=== PATIENT | female | born 1940 | race Caucasian/White ===

== ENCOUNTER 2022-03-30 09:07 | Emergency (ER) | payer MEDICARE, SELFPAY ==
[2022-03-30 09:19] VITALS: BP 143/62; PULSE 60; RESP 16; TEMP 36.6; O2SAT 99
--- NOTE | 2022-03-30 09:56 | ED.URI ---
HPI - URI/Sore Throat General Chief Complaint: Upper Respiratory Infection Stated Complaint: cough Time Seen by Provider: 03/30/22 09:56 Source: patient and RN notes reviewed Mode of arrival: ambulatory Limitations: no limitations History of Present Illness HPI Narrative: 81 y/o female presented for test for flu and RSV. States last week she was sick with cough, and the operations and maintenance technican cover provider gave zpack and steroids which she has completed. She states pulm wanted testing for flu and RSV and she will be going to [place] for a CXR this week, then f/u with pulm. Reports she continues to cough but no longer coughing up green/yellow sputum. Denies hemoptysis, sob, wheezing, n/v/d/f/c. elicited complaint: cough Related Data Home Medications Medication Instructions Recorded Confirmed amlodipine 10 mg tablet 10 mg PO DAILY 03/30/22 03/30/22 doxazosin 4 mg tablet 4 mg PO DAILY 03/30/22 03/30/22 furosemide 40 mg tablet 40 mg PO DAILY 03/30/22 03/30/22 losartan 100 mg tablet 100 mg PO DAILY 03/30/22 03/30/22 pantoprazole 40 mg tablet,delayed 40 mg PO DAILY 03/30/22 03/30/22 release potassium chloride 10 mEq 20 meq PO BID 03/30/22 03/30/22 tablet,extended release rosuvastatin 40 mg tablet 40 mg PO DAILY 03/30/22 03/30/22 spironolactone 25 mg tablet 12.5 mg PO DAILY 03/30/22 03/30/22 Allergies Allergy/AdvReac Type Severity Reaction Status Date / Time levofloxacin Allergy Intermediate Other Verified 03/30/22 10:00 Penicillins Allergy Intermediate Rash Verified 03/30/22 10:00 Sulfa (Sulfonamide Allergy Intermediate Blister Verified 03/30/22 10:00 Antibiotics) Review of Systems Review of Systems: per HPI Exam Narrative: GENERAL: well-appearing, nontoxic EYES: PERRLA, conjunctivae clear ENT: Mucous membranes moist. TMs pearly rosa with dull light reflex bilaterally; no tragal tenderness. CHEST: Right lower lobe faint wheezing, No respiratory distress, speaks in full sentences. HEART: Regular rate and rhythm. No murmur heard. SKIN: Warm, dry, no rash. NEURO: Alert and oriented x3. PSYCH: Normal mood and affect Course Course Emergency Course: Patient is aware of diagnosis, understands and agrees to treatment plan. Anticipatory guidance given. Patient agrees to follow-up as directed and is aware of reasons to seek care at the emergency department. Portions of this record may have been created with voice recognition software Level of Care: Express Care Visit Vital Signs Vital signs: Vital Signs Temperature 97.9 F 03/30/22 09:19 Pulse Rate 60 03/30/22 09:19 Respiratory Rate 16 03/30/22 09:19 Blood Pressure 143/62 H 03/30/22 09:19 Pulse Oximetry 99 03/30/22 09:19 Oxygen Delivery Room Air 03/30/22 09:19 Temperature 97.9 F 03/30/22 09:19 Pulse Rate 60 03/30/22 09:19 Respiratory Rate 16 03/30/22 09:19 Blood Pressure 143/62 H 03/30/22 09:19 Pulse Oximetry 99 03/30/22 09:19 Oxygen Delivery Room Air 03/30/22 09:19 reviewed MDM - URI/Sore Throat MDM Narrative Medical decision making narrative: Flu and RSV result reviewed with patient. Advised supportive measures and signs/symptoms to go to the ER. Pt is appropriate for outpt treatment and f/u with pulm as scheduled. Differential Diagnosis Differential diagnosis: Likely upper respiratory infection, sinusitis and viral infection Discharge Plan Discharge Clinical Impression: Viral infection Patient Disposition: Home, Self-Care Condition: Stable Instructions: Acute Cough (ED) Additional Instructions: Flu and RSV negative. Rest. Drink plenty of fluids. Use your albuterol inhaler as needed for shortness of breath/wheezing. Follow-up with operations and maintenance technican as scheduled. The ER for worsening symptoms or concerns. Follow-up/Referrals: UNKNOWN,DOCTOR [Primary Care Provider] - Time of Disposition: 10:07
== END 2022-03-30 10:11 | disposition home or self-care (01) ==
PROVIDERS: Emergency Provider Nurse Practitioner Family
DX: B34.9 Viral infection, unspecified (principal); E78.00 Pure hypercholesterolemia, unspecified; I10 Essential (primary) hypertension; K21.9 Gastro-esophageal reflux disease without esophagitis; M19.90 Unspecified osteoarthritis, unspecified site; H35.30 Unspecified macular degeneration
CPT/HCPCS: 87420; 87804; 99213; G0463

== ENCOUNTER 2022-06-07 09:57 | Outpatient (CLI) | payer MEDICARE, SELFPAY ==
--- NOTE | ~2022-06-07 | US_ITS ---
EXAMINATION: US carotid duplex BI DATE: 06/07/2022 11:18 INDICATION: Dizziness and giddiness. TECHNIQUE: Grayscale, color Doppler, and pulsed Doppler images of the cervical carotid arteries were obtained. The degree of vessel stenosis is placed in one of the following categories: normal, <50%, 5 0-69%, >=70% but less than near-occlusion, near-occlusion, or total occlusion. Note that percent sten osis relative to normal distal artery lumen diameter is indirectly measured from velocity measurement s as described by [place], et al. Radiology 2003; [id number]. COMPARISON: None. FINDINGS: RIGHT: The right common carotid artery (CCA) peak systolic velocity (PSV) is 95 cm/s. The right internal car otid artery (ICA) PSV is 83 cm/s. The right ICA end-diastolic velocity (EDV) is 19 cm/s. The right IC A/CCA PSV ratio is 0.9. Grayscale and color Doppler images yield an estimate of <50% diameter reducti on from plaque in the ICA. The external carotid artery (ECA) PSV is 73 cm/s. There is antegrade flow in the right vertebral artery. LEFT: The left CCA PSV is 103 cm/s. The left ICA PSV is 81 cm/s. The left ICA EDV is 19 cm/s. The left ICA/ CCA PSV ratio is 0.8. Grayscale and color Doppler images yield an estimate of <50% diameter reduction from plaque in the ICA. The ECA PSV is 95 cm/s. There is antegrade flow in the left vertebral artery . IMPRESSION: 1. <50% stenosis in the right internal carotid artery. 2. <50% stenosis in the left internal carotid artery. Reviewed, dictated and finalized at location B.
== END 2022-06-07 09:58 | disposition home or self-care (01) ==
PROVIDERS: PCP Emergency Medicine; Visit Provider Emergency Medicine
DX: R42 Dizziness and giddiness (principal); I65.23 Occlusion and stenosis of bilateral carotid arteries
CPT/HCPCS: 93880